=== PATIENT | female | born 2000 | race Caucasian/White ===

== ENCOUNTER 2023-10-28 14:20 | Emergency (ER) | payer OTHER, SELFPAY ==
[2023-10-28 14:34] VITALS: BP 136/85
[2023-10-28 15:25] VITALS: BP 130/78
--- NOTE | 2023-10-28 15:58 | ED.GENMED ---
History of Present Illness
General
Chief Complaint: Allergic Reaction
Time Seen by Provider: 10/28/23 15:27
History of Present Illness
History of Present Illness:
23-year-old female presents the emergency department for evaluation of a presumed allergic reaction developing earlier this morning. She states this has happened on occasion over the past few weeks and she is scheduled to see an party supply specialist
in 3 days. She denies any known trigger, developed arm and leg swelling as well as facial swelling and difficulty breathing. She went to urgent care and she was administered diphenhydramine and epinephrine and symptoms have improved. She has no
symptoms at present
Review of Systems
Review of Systems
Allergies reviewed?: Yes
All Other Systems: ROS reviewed and negative except as documented in HPI and ROS
Phy Exam
Physical Exam
Physical Exam:
GEN: Well appearing, NAD, WDWN
HEENT: Oral mucosa moist, no scleral icterus, oropharynx clear without swelling
Cardiac: Regular rate
Lung: No respiratory distress, no tachypnea, lungs clear without wheezing
MSK: No gross deformity or injuries
Skin: Good color, no pallor or jaundice, no rashes, no urticarial lesions
Neuro: AO x3, moves all extremities freely
Psych: Calm, cooperative
Course
Vital Signs
Initial and Last Documented VS:
Initial Vital Signs
Temp Pulse Resp BP Pulse Ox
98.2 F 76 17 136/85 100
10/28/23 14:34 10/28/23 14:34 10/28/23 14:34 10/28/23 14:34 10/28/23 14:34
Last Documented Vital Signs
Temp Pulse Resp BP Pulse Ox
98.2 F 76 18 130/78 100
10/28/23 14:34 10/28/23 15:25 10/28/23 15:25 10/28/23 15:25 10/28/23 15:25
MDM/Problems Addressed
MDM/Problems Addressed:
Patient has no symptoms at present. Unclear etiology, will prescribe EpiPen and corticosteroids however advised her not to take the steroids as this would almost assuredly affect results of her evaluation with party supply specialist
*Critical Care Note
Total Time (30-74mins, 75-104mins- exclusive of procedures): Not Applicable
ED Attending Note
-
Portions of this chart may have been created with voice recognition software.� Occasional wrong word or��sound alike� substitutions may have occurred due to the inherent limitations of voice recognition software.
Discharge Plan
Departure
Patient Disposition: Home (Routine Discharge)
Date of Disposition: 10/28/23
Time of Disposition: 15:59
Patient with high blood pressure during this ER visit?: No
Discharge Problem:
Allergic reaction
Instructions: Allergic Reaction ED
Prescriptions:
New
epinephrine 0.3 mg/0.3 mL auto-injector
0.3 ml IM ONCE Qty: 2 0RF
methylprednisolone [Medrol (Benedicto)] 4 mg tablets,dose pack
See Rx Instructions .ROUTE .COMPLEX Qty: 21 0RF
Rx Instructions:
orally per package directions
Referrals:
Jason Tinajero DO [Family Provider] -
Interventions
Interventions:
*Risk Screen - Suicide Last Done: 10/28/23 15:21
*General Assessment Last Done: 10/28/23 14:35
*Neglect/Abuse Screening Last Done: 10/28/23 14:35
ED- Fall Risk Assessment Last Done: 10/28/23 14:35
*ED COVID-19 Vaccine History Last Done: 10/28/23 14:35
*Nursing Disposition Last Done: 10/28/23 16:14
ED- Cardiac Assessment Last Done: 10/28/23 14:35
ED- Pulmonary Assessment Last Done: 10/28/23 14:35
ED-Skin Assessment Last Done: 10/28/23 14:35
Discharge Date and Time
Discharge Date/Time: 10/28/23 16:15
Print Language: SPANISH
== END 2023-10-28 16:15 | disposition home or self-care (01) ==
LOC: EMR 14:20
PROVIDERS: EMERGENCY PHYSICIAN Emergency Medicine; FAMILY PHYSICIAN Family Medicine
DX: T78.40XA Allergy, unspecified, initial encounter (principal); X58.XXXA Exposure to other specified factors, initial encounter
CPT/HCPCS: 99282

== ENCOUNTER 2024-05-10 06:14 | Day surgery (SDC) | payer OTHER, SELFPAY | END 2024-05-10 16:07 | disposition home or self-care (01) | LOC: GI 06:14 | PROVIDERS: ATTENDING PHYSICIAN Internal Medicine; FAMILY PHYSICIAN Family Medicine | DX: R13.10 Dysphagia, unspecified (principal); R14.0 Abdominal distension (gaseous) | CPT/HCPCS: 43239; 88305; 88342 ==